=== PATIENT | female | born 1950 | race Caucasian/White ===

== ENCOUNTER 2021-04-09 13:58 | Outpatient (CLI) | payer MEDICARE, BC | END 2021-04-09 13:59 | disposition home or self-care (01) | LOC: CSHMAMMO 13:58 | PROVIDERS: ATTEND Family Medicine | DX: Z12.31 Encounter for screening mammogram for malignant neoplasm of breast (principal); Z80.3 Family history of malignant neoplasm of breast | CPT/HCPCS: 77063; 77067 ==

== ENCOUNTER 2022-05-18 13:33 | Outpatient (CLI) | payer MEDICARE, BC | END 2022-05-18 13:34 | disposition home or self-care (01) | LOC: CSHMAMMO 13:33 | PROVIDERS: ATTEND Obstetrics & Gynecology | DX: Z12.31 Encounter for screening mammogram for malignant neoplasm of breast (principal); Z80.3 Family history of malignant neoplasm of breast | CPT/HCPCS: 77063; 77067 ==

== ENCOUNTER 2024-09-03 00:58 | Observation (INO) | payer BC, MEDICARE ==
[2024-09-03 01:44] LABS: #Basophils 0.04 10x3/uL (0.0-0.2); #Eosinophils 0.09 10x3/uL (0.0-0.5); #Monocytes 0.48 10x3/uL (0.0-1.1); #Neutrophils 2.17 10x3/uL (1.5-8.4); %Basophils 0.7 % (0.0-2.0); %Eosinophils 1.6 % (0.0-6.0); %Lymphocytes 50.8 % (18.0-47.0); %Monocytes 8.5 % (0.0-10.0); %Neutrophils 38.2 % (40.0-75.0); ALT (SGPT) 21 U/L (Less than 34); AST (SGOT) 35 U/L (11-34); Acetaminophen Less than 10 mcg/mL (Less than 10); Albumin 4.3 g/dL (3.1-4.5); Alcohol 244.9 mg/dL (Less than 10); Alkaline Phosphatase 52 U/L (40-110); Anion Gap 16 mmol/L (10-20); BUN (Urea Nitrogen) 19 mg/dL (9.8-20.1); Bilirubin, Total 0.3 mg/dL (0.3-1.2); Calc. Creatinine Clearance 0 mL/min (70-130); Calcium 8.7 mg/dL (7.8-10.44); Carbon Dioxide 19 mmol/L (23-31); Chloride 107 mmol/L (98-107); Estimated GFR 82; Globulin 3.2 g/dL (2.4-3.5); Glucose 103 mg/dL (83-110); Hematocrit 39.5 % (34.9-44.5); Hemoglobin 13.7 g/dL (12.0-15.5); Magnesium 2.2 mg/dL (1.6-2.6); Mean Corpuscular HGB CONC 34.7 g/dL (32.0-36.0); Mean Corpuscular Hemoglobin 33.7 pg (27.0-33.0); Mean Corpuscular Volume 97.1 fL (81.6-98.3); Mean Platelet Volume 8.7 fL (7.4-10.4); Phosphorus 4.1 mg/dL (2.5-4.5); Platelet Count 240 10x3/uL (150-450); Potassium 4.2 mmol/L (3.5-5.1); Protein, Total 7.5 g/dL (5.8-8.1); RBC Distribution Width 13.4 % (11.5-14.5); Red Blood Cell (RBC) Count 4.07 10x6/uL (3.90-5.03); Salicylate Less than 8.0 mg/dL (Less than 8.0); Sodium 138 mmol/L (136-145); White Blood Cell (WBC) Count 5.67 10x3/uL (3.5-10.5)
[2024-09-03 01:47] LABS: Troponin I Less than 0.010 ng/mL (< 0.028)
[2024-09-03] MEDS ORDERED: Metoprolol Tartrate 5 MG (5 mL) VIAL ONE (01:58)
[2024-09-03] MEDS ORDERED: Magnesium 2 GM/50 ML BAG (IN WATER) ONE (01:59)
[2024-09-03] MEDS ORDERED: Digoxin 0.5 MG/2 ML AMP ONE ×2 (04:30→05:05)
[2024-09-03] MEDS ORDERED: Guaifenesin DM 100-10/5 ML UDCUP PO PRN (04:51)
[2024-09-03] MEDS ORDERED: Senokot S 8.6-50 MG TAB PO PRN (04:51)
[2024-09-03] MEDS ORDERED: Acetaminophen 325 MG TAB PO PRN (04:51)
[2024-09-03] MEDS ORDERED: Calcium Carbonate 500 MG ChewTAB PO PRN (04:51)
[2024-09-03] MEDS ORDERED: Ondansetron PF 4 MG/2 ML Vial IVP PRN (04:51)
[2024-09-03 05:56] VITALS: BMI 20.3
[2024-09-03] MEDS: Levothyroxine Sodium 125 MCG TAB PO SCH (06:12)
[2024-09-03] MEDS: Lactated Ringer's 1,000 ML IV SCH (06:13)
[2024-09-03] MEDS: Fluticasone Propionate Nasal Spray 16 gm Bottle NASAL SCH (08:32)
[2024-09-03] MEDS: Enoxaparin 60 MG (0.6 mL) SYRINGE SC SCH (08:32)
[2024-09-03] MEDS: Thiamine 100 MG TAB PO SCH (08:33)
[2024-09-03] MEDS: Loratadine 10 MG TAB PO SCH (08:33)
[2024-09-03] MEDS: Metoprolol Tartrate 25 MG TAB PO SCH ×2 (08:34→20:13)
[2024-09-03] MEDS: Folic Acid 1 MG TAB PO SCH (08:34)
[2024-09-03] MEDS ORDERED: Digoxin 0.5 MG/2 ML AMP SLOW IVP SCH (09:00)
[2024-09-03] MEDS ORDERED: Metoprolol Tartrate 25 MG TAB PO SCH (09:00)
[2024-09-03] MEDS: Apixaban 5 MG TAB PO SCH ×2 (13:10→20:13)
[2024-09-03 19:22] VITALS: BP 156/67; TEMP 98.7
== END 2024-09-03 20:40 | disposition home or self-care (01) ==
LOC: CSHERS 00:58 → CSHTELE 04:32
PROVIDERS: ADMIT Student in an Organized Health Care Education/Training Program; ATTEND Family Medicine
PROC: B24BZZZ Ultrasonography of Heart with Aorta (ICD-10-PCS; principal; 2024-09-03)
DX: R55 Syncope and collapse (principal); I48.91 Unspecified atrial fibrillation; E03.9 Hypothyroidism, unspecified; F10.929 Alcohol use, unspecified with intoxication, unspecified; Y90.8 Blood alcohol level of 240 mg/100 ml or more; Z98.890 Other specified postprocedural states; Z91.041 Radiographic dye allergy status; Z79.890 Hormone replacement therapy; Z79.82 Long term (current) use of aspirin; Z79.01 Long term (current) use of anticoagulants
CPT/HCPCS: 70450; 71045; 71046; 80307; 83735; 83880; 84100; 84484 ×2; 93005; 93306; 96365; 96375; 99285; G0378 ×2; J1160; J3475; J7120; 36415; 80053; 84443; 85025